=== PATIENT | female | born 1950 | race Hispanic/Latino ===

== ENCOUNTER 2017-02-09 11:32 | Day surgery (SDC) | payer MEDICARE ==
[~2017-02-09 11:32] MED LIST: IOPIDINE OD ONE; MYDRIACYL OD ONE; NEOFRIN OD ONE
[2017-02-09] MEDS ORDERED: MYDRIACYL OD ONE (12:10)
[2017-02-09] MEDS ORDERED: NEOFRIN OD ONE (12:10)
[2017-02-09] MEDS ORDERED: IOPIDINE OD ONE (12:12)
[2017-02-09 12:30] VITALS: BP 110/60
== END 2017-02-09 11:33 | disposition home or self-care (01) ==
LOC: OR 11:32
PROVIDERS: ATTEND Specialist
DX: H26.491 Other secondary cataract, right eye (principal)

== ENCOUNTER 2017-02-15 09:30 | Day surgery (SDC) | payer MEDICARE ==
[2017-02-15] MEDS ORDERED: IOPIDINE ONE (10:11)
[2017-02-15] MEDS ORDERED: MYDRIACYL ONE (10:11)
[2017-02-15] MEDS ORDERED: NEOFRIN ONE (10:12)
[2017-02-15 10:16] VITALS: BP 120/70
[2017-02-15] MEDS ORDERED: IOPIDINE OS ONE (10:20)
[2017-02-15] MEDS ORDERED: MYDRIACYL OS ONE (10:20)
[2017-02-15] MEDS ORDERED: NEOFRIN OS ONE (10:20)
== END 2017-02-15 09:31 | disposition home or self-care (01) ==
LOC: OR 09:30
PROVIDERS: ATTEND Specialist
DX: H26.492 Other secondary cataract, left eye (principal)

== ENCOUNTER 2021-06-16 12:05 | Outpatient (CLI) | payer MEDICARE ==
--- NOTE | 2021-06-24 08:50 | Mammography Report ---
DEXA BONE DENSITY SCAN INDICATION / CLINICAL INFORMATION: AGE RELATED OSTEOPOROSIS W/O CURRENT PATHOLOGICAL FX. 71 years Female COMPARISON: None available. LEFT FOREARM, 33% RADIUS - Bone mineral density (BMD) = 0.648 g/cm2. - T-score = -0.6 - Z-score = 1.4 Change (%) since most recent prior (if available): None available. LEFT HIP, TOTAL : - Bone mineral density (BMD) = 0.792 g/cm2. - T-score = -1.2 - Z-score = 0.2 Change (%) since most recent prior (if available): None available. Lumbar spine not reported secondary to scoliosis hardware. IMPRESSION: 1. WHO Classification: Osteopenia. Fracture Risk: Increased. 2. 10-Year Fracture Risk (FRAX) = Major Osteoporotic Not reported.% / Hip: Not reported.% FRAX generally not reported for patients with normal or osteoporotic BMD, in kyg-jxniqtk-lsmxnfk pedro ents younger than age 50, or in patients undergoing pharmacotherapy BMD Reporting Guidelines (ISCD, 2015) BMD Reporting in Postmenopausal Women and in Men Age 50 and Older - T-scores are preferred. - The WHO densitometric classification is applicable. BMD Reporting in Females Prior to Menopause and in Males Younger Than Age 50 - Z-scores, not T-scores, are preferred. This is particularly important in children. - A Z-score of -2.0 or lower is defined as below the expected range for age, and a Z-score above -2.0 is within the expected range for age. - Osteoporosis cannot be diagnosed in men under age 50 on the basis of BMD alone. - The WHO diagnostic criteria may be applied to women in the menopausal transition. http://www.iscd.org/official-positions/8754-xghy-rhgrvmlo-positions-adult/ Signer Name: Aleksandr Machuca MD Signed: 06/24/2021 8:46 AM Workstation Name: [id number]
== END 2021-06-16 12:06 | disposition home or self-care (01) ==
LOC: SPVWC 12:05
PROVIDERS: ATTEND Internal Medicine Hematology & Oncology
DX: Z13.820 Encounter for screening for osteoporosis (principal); M81.0 Age-related osteoporosis without current pathological fracture
CPT/HCPCS: 77080